=== PATIENT | female | born 1975 | race Caucasian/White ===

== ENCOUNTER → 2016-09-10 | Outpatient (CLI) | payer BC, OTHER, SELFPAY ==
--- NOTE | 2016-09-10 10:45 | MRI ---
EXAM DESCRIPTION: MR BRAIN WITHOUT THEN WITH IV CONTRAST CLINICAL HISTORY: 41 y/o F, BLACK OUT COMPARISON: None available. TECHNIQUE: Multiplanar multi sequence images of the brain were obtained without gadolinium contrast. FINDINGS: There is no diffusion restriction. Midline structures, including the corpus callosum, pituitary and brainstem are unremarkable. The ventricles are of normal size and configuration, and there is no intraventricular mass. Physiologic vascular flow voids are noted. The internal auditory canals and cerebellopontine angles are unremarkable. There are no extra-axial fluid collections. There is no posterior fossa lesion. The basal ganglia are unremarkable. No ogden or white matter signal abnormalities are noted in the cerebral hemispheres. Visualized paranasal sinuses and orbits are unremarkable. There is no calvarial lesion. Post-contrast images show no enhancing intracranial abnormality. IMPRESSION: Negative exam. Electronically signed by: Sanjay Doherty DO 09/10/2016 10:43
== END | disposition home or self-care (01) ==
LOC: MRI 07:57
PROVIDERS: ATTEND Obstetrics & Gynecology
DX: R55 Syncope and collapse (principal)